=== PATIENT | male | born 1980 | race Caucasian/White ===

== ENCOUNTER 2017-03-16 02:07 | Emergency (ER) | payer MEDICAID ==
[2017-03-16 03:06] LABS: BASOPHIL % 1.9 % (0-2); PLATELET COUNT 322 x10^3mcL (130-400); RED CELL DISTRIBUTION WIDTH 12.8 % (11.5-14.5)
[2017-03-16 04:05] LABS: CALCIUM 8.3 mg/dL (8.5-10.1); CARBON DIOXIDE 26.3 mmol/L (21-32); CHLORIDE SERUM 102 mmol/L (98-107); CREATININE SERUM 1.1 mg/dL (0.7-1.3); GFR1 > 60 mL/min; GLUCOSE SERUM 93 mg/dL (74-106); SODIUM SERUM 137 mmol/L (136-145)
[2017-03-16 04:07] LABS: microscopic required? YES; urine erythrocyte 2+ (NEGATIVE)
[2017-03-16 06:25] VITALS: BP 137/98
== END 2017-03-16 06:56 | disposition home or self-care (01) ==
LOC: ED 02:07
PROVIDERS: Emergency Medicine
DX: N13.2 Hydronephrosis with renal and ureteral calculous obstruction (principal)
CPT/HCPCS: J1885; J2270; J2405; J3010; J7030; Q0092

== ENCOUNTER 2017-04-07 14:54 | Emergency (ER) | payer MEDICAID ==
[~2017-04-07] VITALS: Ht 172.7 cm; Wt 83.1 kg
[2017-04-07 17:32] VITALS: BP 144/80
== END 2017-04-07 17:32 | disposition home or self-care (01) ==
LOC: ED 14:54
DX: K59.00 Constipation, unspecified (principal); N23 Unspecified renal colic
CPT/HCPCS: J1885; Q0092

== ENCOUNTER 2017-05-17 07:55 | Inpatient (IN) | payer MEDICAID ==
[~2017-05-17] VITALS: Ht 175.3 cm; Wt 83.9 kg
--- NOTE | 2017-05-17 08:16 | NUR ---
MSE COMPLETED BY DR PHILIP
--- NOTE | 2017-05-17 08:18 | NUR ---
LAB AT BEDSIDE
--- NOTE | 2017-05-17 08:20 | NUR ---
RADIOLOGY AT BEDSIDE FOR PCXR
--- NOTE | 2017-05-17 08:21 | NUR ---
PT C/O L FLANK PAIN X3 DAYS. PT EXPRESSES CONCERN OF RENAL STONE WITH HX OF. PT RPEORTS HAVING APPT TODAY WITH SPECIALIST BUT STS IS UNABLE TO WAIT FOR APPT DUE TO PAIN. PT IS AAOX4, RESP EVEN AND UNLABORED, RA AND PRESENTS IN MOD DISTRESS.
[2017-05-17 08:33] LABS: BASOPHIL % 0.4 % (0-2); PLATELET COUNT 378 x10^3mcL (130-400); RED CELL DISTRIBUTION WIDTH 12.8 % (11.5-14.5)
--- NOTE | 2017-05-17 08:40 | NUR ---
PT AMBULATED TO AND FROM RESTROOM TO PROVIDE URINE SAMPLE. NO INCIDENT. RERMAINS STABLE CONDITION
[2017-05-17 08:53] LABS: T3 TOTAL 1.3 ng/mL
[2017-05-17 08:53] LABS: UA SPECIFIC GRAVITY >=1.030 (1.005-1.035); microscopic required? YES; urine erythrocyte 2+ (NEGATIVE)
[2017-05-17 08:55] LABS: CARBON DIOXIDE 27.9 mmol/L (21-32); CHLORIDE SERUM 101 mmol/L (98-107); CREATININE SERUM 1.2 mg/dL (0.7-1.3); GFR1 > 60 mL/min; GLUCOSE SERUM 124 mg/dL (74-106); SODIUM SERUM 138 mmol/L (136-145)
[2017-05-17 08:57] LABS: FREE T4 1.21 ng/dL (0.76-1.46); FREE THYROXINE INDEX 3.2 ug/dL (1.4-4.5); T4(THYROXINE) 9.2 ug/dL (4.7-13.3)
[2017-05-17 09:01] LABS: ALBUMIN 3.8 g/dL (3.4-5.0); ALKALINE PHOSPHATASE 84 U/L (46-116); ALT/SGPT 36 U/L (16-63); AST/SGOT 18 U/L (15-37); BILIRUBIN TOTAL 0.5 mg/dL (0.20-1.00); CHOLESTEROL 161 mg/dL (<200); CHOLESTEROL/HDL RATIO 3.3; HDL CHOLESTEROL 49 mg/dL (40-60); LIPASE 111 IU/L (73-393); TRIGLYCERIDES 49 mg/dL (<150)
[2017-05-17 09:05] LABS: TOTAL PROTEIN, SERUM 8.6 g/dL (6.4-8.2)
--- NOTE | 2017-05-17 09:09 | NUR ---
PT TAKEN FOR CT SCAN
--- NOTE | 2017-05-17 10:31 | NUR ---
PT SLEEPING AT THIS TIME. RESP EVEN AND UNLABORED, RA. VS STABLE. NAD NOTED.
--- NOTE | 2017-05-17 10:55 | NUR ---
MED STUDENT AT BEDSIDE SPEAKING TO PT
--- NOTE | 2017-05-17 11:07 | NUR ---
REPORT GIVEN TO CASSIE ALEJANDRO IN [facility] FOR CONTINUITY OF CARE. PT AWAITING VERBAL OK FROM DR CARVALHO TO MOVE TO [facility]
[2017-05-17 11:36] LABS: MAGNESIUM 2.1 mg/dL (1.8-2.4); PHOSPHOROUS 3.2 mg/dL (2.5-4.9)
[2017-05-17 12:48] VITALS: BP 142/105
[2017-05-17 15:13] LABS: AMPHETAMINE QUAL UR POSITIVE (NEG <=1000)
--- NOTE | 2017-05-17 15:49 | NUR ---
AT 1200 - RECEIVED PATIENT FROM ER NURSE. ADMITTED WITH RENAL COLIC. PATIENT IS AWAKE, ALERT AND ORIENTED X 4. REPROTS THAT PAIN HAD SUBSIDED WITH MEDICATIONS ADMINISTERED IN ER BUT THAT IT IS RETURNING, NOW 8/. C/O LEFT FLANK PAIN WHICH HAS MOVED FROM BACK TO FRONT FLANK. PATIENT AWARE OF NEED TO HAVE ALL URINE STRAINED FOR CALCULI. HISTORY OBTAINED FROM PATIENT. IV INFUSION OF NS COMMENCED AT 100ML/HR. AT 1210 - MEDICATED WITH DILAUDID 2 MG PO PER EMAR. SEEN BY DR TAM. AT 1300 - PATIENT HAS EATEN LUNCH, PAIN SUBSIDING. AT 1400 - PATIENT SLEEPING.
[2017-05-17 16:37] VITALS: BP 140/98
--- NOTE | 2017-05-17 18:16 | NUR ---
PATIENT SLEPT MOST OF THE AFTERNOON. REPORTS PAIN UNDER CONTROL. HAS NOT REQUIRED ANY FURTHER ANAELGESICS. HAS EATEN DINNER. NO C/O NAUSEA. IV INFUSING NS AT 100ML/HR. ENCOURAGED PO LIQUIDS. VOIDING IN URINAL - CLEAR DEVENDRA URINE. URINE STRAINED FOR CALCULI - NONE DETECTED. WILL ENDORSE CARE TO NIGHT NURSE.
--- NOTE | 2017-05-17 20:15 | NUR ---
PT ALERT, AWAKE. VERBAL RESPONSE. ABLE TO STATE NEEDS. LUNG SOUNDS CLEAR. DENY SOB. PT ON TELE 24, SR. DENIES CHEST PAIN. BOWEL SOUNDS PRESENT IN ALL 4 QUADRANTS. NO DISTENTION. PT C/O ABDOMINAL PAIN TO LEFT LOWER QUADRANT 10/10, DILAUDID PO GIVEN. PEDAL PULSES PRESENT, NO EDEMA NOTED. IV RAC. NO LEAKAGE, NO INFILTRATION. ALL ADLS ASSIST, CALL LIGHT IN REACH, WILL CONTINUE TO MONITOR.
[2017-05-17 21:13] VITALS: BP 134/87
--- NOTE | 2017-05-18 05:14 | NUR ---
PT A/O X4, VERBALLY RESPONSIVE. NO RESPIRATORY DISTRESS. C/O PAIN 10/10 TO ABDOMEN. DILAUDID AND FLEXARIL GIVEN PO. IV TO RAC, NO LEAKING/INFILTRATION. ALL NEEDS MET, ALL ADLS ASSIST, CALL LIGHT IN REACH. WILL CONTINUE TO MONITOR.
--- NOTE | 2017-05-18 05:18 | NUR ---
STRAINED PT URINE DURING SHIFT. NO STONES PRESENT. WILL CONTINUE TO MONITOR.
[2017-05-18 05:26] VITALS: BP 147/97
[2017-05-18 07:28] LABS: BASOPHIL % 0.3 % (0-2); PLATELET COUNT 323 x10^3mcL (130-400); RED CELL DISTRIBUTION WIDTH 12.4 % (11.5-14.5)
[2017-05-18 07:33] LABS: CALCIUM 8.2 mg/dL (8.5-10.1); CARBON DIOXIDE 28.1 mmol/L (21-32); CHLORIDE SERUM 104 mmol/L (98-107); CREATININE SERUM 1.2 mg/dL (0.7-1.3); GFR1 > 60 mL/min; GLUCOSE SERUM 106 mg/dL (74-106); POTASSIUM SERUM 3.8 mmol/L (3.5-5.1); SODIUM SERUM 138 mmol/L (136-145)
--- NOTE | 2017-05-18 08:02 | NUR ---
AT 0720 - RECEIVED PATIENT FROM NIGHT NURSE. PATIENT SLEEPING. RESPIRATIONS REGULAR. MONITOR SHOWING SINUS RHYHTM; RATE 110. IV INFUSING NS AT 100ML/HR. CONTINUING TO MONITOR.
[2017-05-18 09:12] VITALS: BP 136/92
--- NOTE | 2017-05-18 11:01 | NUR ---
PATIENT RESTING QUIETLY MOST OF THE MORNING. WAKES UP FOR MEALS AND TOILET NEEDS. DENEIS ANY PAIN AT THIS TIME. HAS BEEN SEEN BY DR TAM.
--- NOTE | 2017-05-18 11:55 | NUR ---
SEEN BY DR GUTIERREZ DURING MORNING ROUNDS. DR WAYNE, DR OBANDO, ADRIANA WALDROP AND MYSELF PRIMARY NURSE ALSO PRESENT. DR GUTIERREZ SPOKE WITH PATIENT ABOUT CURRENT PLAN OF CARE. PATIENT TO REMAIN IN HOSPITAL TODAY FOR PAIN CONTROL.
[2017-05-18 12:15] VITALS: BP 148/82
--- NOTE | 2017-05-18 12:43 | NUR ---
PATIENT SITTING ON SIDE OF BED EATING LUNCH. MONITOR SHOWING SINUS TACH; RATE 130. PATIENT DENIES ANY PAIN AT THIS TIME.
--- NOTE | 2017-05-18 15:42 | NUR ---
C/O BACK PAIN. MEDICATED WITH TORADOL PER EMAR.
[2017-05-18 17:09] VITALS: BP 128/96
--- NOTE | 2017-05-18 18:26 | NUR ---
PAIN APPEARS TO HAVE RESOLVED. PATIENT RESTING QUIETLY. ABLE TO TOLERATE FOOD. VSS AND WNL. AFEBRILE. URINE STRAINED FOR CALCULI BUT NONE DETECTED. WILL ENDORSE CARE TO NIGHT NURSE.
--- NOTE | 2017-05-18 18:50 | NUR ---
PATIENT SITTING UP IN BED. REPORTS FEELING BETTER. K-PAD IN PLACE TO BACK. AT BEDSIDE.
--- NOTE | 2017-05-18 19:30 | NUR ---
PT. IS A/O x4. LUNGS CLEAR IN ALL FEILDS. NO COMPLAIN OF SOB. TELE #25 NSR, NO COMPLAIN OF CHEST PAIN OR PRESSURE. NO EDEMA PEDIAL PULSES PRESENT. ABD IS TENDER TO TOUCH D/T THE RENAL STONE. PT REFUSED PAIN MED AT THIS TIME. REPOSITIONED PT FOR A MORE COMFTABLE POSTION, PT STATED IT HELPED. K PAD IS LOCATED ON L FLANK. SKIN WARM AND INTACT. IV IS PATENT WITH NO SIGNS OF INFILTRATION. RUNNING NS PER MD ORDER. AT BEDSIDE. BED IN LOWEST SETTING. CALL LIGHT WITHIN REACH. WILL CONTINUE TO MONITOR.
[2017-05-18 21:18] VITALS: BP 136/92
--- NOTE | 2017-05-19 00:13 | NUR ---
PT IS SLEEPING IN BED. NO SIGNS OF ANY PAIN OR DISTRESS. IV RUNNING PER MD ORDER, NO SIGNS OF INFILTRATION. BED IN LOWEST SETTING. CALL LIGHT WITHIN REACH. WILL CONTINUE TO MONITOR PT.
--- NOTE | 2017-05-19 05:08 | NUR ---
PT. IS SLEEPING IN BED. NO SIGNS OF ANY PAIN. STRAINED URINE WAS NEGATIVE OF ANY STONE. BREATHING IS EVEN AND UNLABORED. IV IS PATENT WITH NO SIGNS OF INFILTRATION. CALL LIGHT IS WIHTIN REACH. WILL ENDORSE TO AM NURSE.
[2017-05-19 05:44] VITALS: BP 147/96
[2017-05-19 07:14] LABS: CALCIUM 8.2 mg/dL (8.5-10.1); CARBON DIOXIDE 28.9 mmol/L (21-32); CREATININE SERUM 1.4 mg/dL (0.7-1.3); POTASSIUM SERUM 3.9 mmol/L (3.5-5.1)
--- NOTE | 2017-05-19 07:20 | NUR ---
PT IN LOW FOWLERS, AWAKE, ABLE TO LET NEEDS KNOWN. DENIES PAIN AT FLANKS. IV INFUSING WELL TO RAC #20 NS 100ML/HR. BED IN LOWEST POSITION, CALL LIGHT WITHIN REACH.
[2017-05-19 07:22] LABS: BASOPHIL % 0.3 % (0-2); PLATELET COUNT 297 x10^3mcL (130-400); RED CELL DISTRIBUTION WIDTH 12.4 % (11.5-14.5)
[2017-05-19 09:27] VITALS: BP 128/86
[2017-05-19] MEDS ORDERED: FLO4 PO (10:03)
[2017-05-19] MEDS ORDERED: NORCO1 TA2 PO (10:16)
[2017-05-19 11:01] VITALS: BP 128/86
--- NOTE | 2017-05-19 12:10 | NUR ---
DISCHARGE INSTRUCTIONS GIVEN TO PATIENT. PT VERBALIZED UNDERSTANDING FOR FOLLOW UP APPOINTMENT AND PRESCRITION ORDERS. IV DC'D, CATHETER INTACT, TELE BOX REMOVED. PT ESCORTED OUT OF UNIT SAFELY.
== END 2017-05-19 12:15 | disposition home or self-care (01) | DRG 465 ==
LOC: ED 07:55 → DU 10:22
PROVIDERS: Specialist; Student in an Organized Health Care Education/Training Program; ADMIT Family Medicine
DX: N13.2 Hydronephrosis with renal and ureteral calculous obstruction (principal); N17.0 Acute kidney failure with tubular necrosis; Z68.27 Body mass index [BMI] 27.0-27.9, adult; Z87.442 Personal history of urinary calculi
CPT/HCPCS: 83880; 84439; J1170; J1885; J2405; J7030

== ENCOUNTER 2017-07-11 21:20 | Emergency (ER) | payer OTHER ==
[~2017-07-11] VITALS: Ht 172.7 cm; Wt 81.6 kg
[~2017-07-11 21:20] MED LIST: FLO4 PO; NORCO1 TA2 PO
[2017-07-11 21:33] VITALS: Ht 172.7 cm; Wt 81.6 kg
[2017-07-11 23:37] LABS: BASOPHIL % 0.3 % (0-2); PLATELET COUNT 341 x10^3mcL (130-400)
[2017-07-11 23:40] LABS: UA SPECIFIC GRAVITY 1.015 (1.005-1.035); microscopic required? YES; urine erythrocyte TRACE (NEGATIVE)
[2017-07-11 23:50] LABS: CHLORIDE SERUM 103 mmol/L (98-107); CREATININE SERUM 1.3 mg/dL (0.7-1.3); GFR1 > 60 mL/min; GLUCOSE SERUM 102 mg/dL (74-106); POTASSIUM SERUM 3.6 mmol/L (3.5-5.1); SODIUM SERUM 138 mmol/L (136-145)
[2017-07-11 23:55] LABS: ALKALINE PHOSPHATASE 83 U/L (46-116); ALT/SGPT 37 U/L (16-63); AST/SGOT 23 U/L (15-37); BILIRUBIN TOTAL 0.3 mg/dL (0.20-1.00); TOTAL PROTEIN, SERUM 7.2 g/dL (6.4-8.2)
[2017-07-11 23:58] LABS: ALBUMIN 3.2 g/dL (3.4-5.0)
[2017-07-12 03:37] VITALS: BP 134/80
== END 2017-07-12 03:37 | disposition home or self-care (01) ==
LOC: ED 21:20
PROVIDERS: Emergency Medicine
DX: N13.2 Hydronephrosis with renal and ureteral calculous obstruction (principal)
CPT/HCPCS: J1885; J2270; J7030

== ENCOUNTER 2018-01-01 22:52 | Emergency (ER) | payer MEDICAID ==
[~2018-01-01] VITALS: Ht 170.2 cm; Wt 81.6 kg
[2018-01-01 23:05] VITALS: Ht 170.2 cm; Wt 81.6 kg
[2018-01-02 00:11] LABS: BASOPHIL % 0.4 % (0-2); PLATELET COUNT 319 x10^3mcL (130-400); RED CELL DISTRIBUTION WIDTH 13.2 % (11.5-14.5)
[2018-01-02 00:19] LABS: CALCIUM 8.7 mg/dL (8.5-10.1); CARBON DIOXIDE 29.3 mmol/L (21-32); CHLORIDE SERUM 106 mmol/L (98-107); CREATININE SERUM 1.2 mg/dL (0.7-1.3); GFR1 > 60 mL/min; GLUCOSE SERUM 107 mg/dL (74-106); SODIUM SERUM 137 mmol/L (136-145)
[2018-01-02 00:35] LABS: ALKALINE PHOSPHATASE 115 U/L (46-116); ALT/SGPT 115 U/L (16-63); AST/SGOT 239 U/L (15-37); BILIRUBIN TOTAL 0.2 mg/dL (0.20-1.00); TOTAL PROTEIN, SERUM 6.9 g/dL (6.4-8.2); URIC ACID 4.5 mg/dL (3.5-7.2)
[2018-01-02 00:39] LABS: ALBUMIN 3.1 g/dL (3.4-5.0)
[2018-01-02 01:00] VITALS: BP 136/91
== END 2018-01-02 01:00 | disposition home or self-care (01) ==
LOC: ED 22:52
PROVIDERS: Emergency Medicine
DX: N23 Unspecified renal colic (principal)
CPT/HCPCS: J1885; J2270; J2405; J7030

== ENCOUNTER 2020-02-10 02:48 | Emergency (ER) | payer OTHER ==
[~2020-02-10] VITALS: Ht 172.7 cm; Wt 90.7 kg
[2020-02-10 03:03] VITALS: Ht 172.7 cm; Wt 90.7 kg
[2020-02-10 04:00] LABS: BASOPHIL % 0.4 % (0-2); PLATELET COUNT 332 x10^3mcL (130-400); RED CELL DISTRIBUTION WIDTH 13.9 % (11.5-14.5)
[2020-02-10 04:01] LABS: CALCIUM 8.9 mg/dL (8.5-10.1); CARBON DIOXIDE 24.7 mmol/L (21-32); CHLORIDE SERUM 105 mmol/L (98-107); CREATININE SERUM 1.1 mg/dL (0.7-1.3); GFR1 > 60 mL/min; GLUCOSE SERUM 100 mg/dL (74-106); POTASSIUM SERUM 3.6 mmol/L (3.5-5.1); SODIUM SERUM 141 mmol/L (136-145)
[2020-02-10 04:06] LABS: ALBUMIN 3.4 g/dL (3.4-5.0); ALKALINE PHOSPHATASE 67 U/L (46-116); ALT/SGPT 46 U/L (16-63); AMYLASE 50 U/L (25-115); AST/SGOT 22 U/L (15-37); BILIRUBIN TOTAL 0.3 mg/dL (0.20-1.00); LIPASE 85 IU/L (73-393); TOTAL PROTEIN, SERUM 7.3 g/dL (6.4-8.2)
[2020-02-10 05:53] VITALS: BP 122/74
[2020-02-10 06:02] LABS: UA SPECIFIC GRAVITY 1.015 (1.005-1.035); microscopic required? YES; urine erythrocyte 3+ (NEGATIVE)
== END 2020-02-10 05:53 | disposition home or self-care (01) ==
LOC: ED 02:48
PROVIDERS: Emergency Medicine
DX: N20.0 Calculus of kidney (principal); Z87.442 Personal history of urinary calculi
CPT/HCPCS: J1885; J2270